=== PATIENT | female | born 1980 | race Caucasian/White ===

== ENCOUNTER 2016-12-26 09:17 | Emergency (ER) | payer BC ==
--- NOTE | 2016-12-26 11:01 | ERPHSYRPT ---
- History of Present Illness Time Seen by Provider: 12/26/16 09:30 Historian: patient Exam Limitations: no limitations Patient Subjective Stated Complaint: cough, vomiting, fever, h/a for two days. Triage Nursing Assessment: ambulated to room per self. dry intermittent cough noted. skin w/d, color normal, resp easy. h/a today and vomited times three. Physician History: Pt. states that she has not felt well x 3 days. Today, she began to have vomiting x 5 . No diarrhea. Positive aching all over. She works at [employer] and is unaware of any illness outbreaks or other known exposure. LNMP 2 weeks ago. Timing/Duration: today Activities at Onset: none Quality: cramping Abdominal Pain Onset Location: generalized abdomen Severity of Pain-Max: moderate Severity of Pain-Current: moderate Modifying Factors: Improves With: nothing Associated Symptoms: weakness, No diarrhea Allergies/Adverse Reactions: bee venom protein (honey bee) Allergy (Verified 12/26/16 09:30) Home Medications: Buspirone HCl [Buspar] 7.5 mg PO BID 12/26/16 [History] Fluoxetine HCl [Prozac] 20 mg PO DAILY 12/26/16 [History] Hydrochlorothiazide 12.5 mg PO DAILY 12/26/16 [History] Metformin HCl 500 mg [Glucophage 500 MG] 500 mg PO BID 12/26/16 [History] Hx Tetanus, Diphtheria Vaccination/Date Given: No Hx Influenza Vaccination/Date Given: No Hx Pneumococcal Vaccination/Date Given: No - Review of Systems Constitutional: No Symptoms Eyes: No Symptoms Ears, Nose, & Throat: No Symptoms Respiratory: No Symptoms Cardiac: No Symptoms Abdominal/Gastrointestinal: Abdominal Pain, Nausea, Vomiting, No Diarrhea Musculoskeletal: No Symptoms Skin: No Symptoms Neurological: No Symptoms Psychological: No Symptoms Endocrine: No Symptoms Hematologic/Lymphatic: No Symptoms - Past Medical History Pertinent Past Medical History: Yes Cardiac History: Hypertension Endocrine Medical History: Diabetes Type II Psycho-Social History: Anxiety, Depression - Past Surgical History Past Surgical History: Yes Female Surgical History: Tubal Ligation Other Surgical History: leap procedure, - Social History Smoking Status: Never smoker Exposure to second hand smoke: No Drug Use: none Patient Lives Alone: No - Female History Hx Last Menstrual Period: 12/14/16 - Nursing Vital Signs Nursing Vital Signs: Initial Vital Signs Temperature 99.3 F Temperature Source Oral Pulse Rate 107 Respiratory Rate 18 Blood Pressure [Right Arm] 122/71 Pain Intensity 1 - Physical Exam General Appearance: moderate distress Eye Exam: eyes nml inspection Ears, Nose, Throat Exam: normal ENT inspection, pharynx normal Neck Exam: normal inspection, supple, full range of motion Respiratory Exam: normal breath sounds, lungs clear Cardiovascular Exam: regular rate/rhythm, normal heart sounds, normal peripheral pulses Gastrointestinal/Abdomen Exam: soft, normal bowel sounds Extremity Exam: normal inspection, normal range of motion Neurologic Exam: alert, oriented x 3, cooperative Skin Exam: normal color, No rash SpO2 Interpretation: normal SpO2: 94 Oxygen Delivery: Room Air - Course Nursing assessment & vital signs reviewed: Yes Ordered Tests: Active Orders 24 hr Category Date Time Status CBC W DIFF Stat Lab 12/26/16 11:26 Completed CMP Stat Lab 12/26/16 11:26 Completed HCG,QUALITATIVE URINE Stat Lab 12/26/16 11:56 Completed LIPASE Stat Lab 12/26/16 11:26 Completed Manual Differential NC Stat Lab 12/26/16 11:26 Completed Medication Summary Discontinued Medications Generic Name Dose Route Start Last Admin Trade Name Kulwinderq PRN Reason Stop Dose Admin Acetaminophen 650 mg 12/26/16 12:41 12/26/16 12:42 Tylenol 325 Mg PO 12/26/16 12:42 650 mg STAT STA Administration Sodium Chloride 1,000 mls @ 999 mls/hr 12/26/16 11:08 12/26/16 11:30 Sodium Chloride 0.9% 1000 Ml IV 12/26/16 12:08 999 mls/hr .Q1H1M STA Administration Sodium Chloride Confirm 12/26/16 11:28 Sodium Chloride 0.9% 1000 Ml Administered 12/26/16 11:29 Dose 1,000 mls @ ud .ROUTE .STK-MED ONE Ondansetron HCl 4 mg 12/26/16 11:08 12/26/16 11:30 Zofran 4 Mg/2 Ml Vial IV 12/26/16 11:09 4 mg STAT ONE Administration Ondansetron HCl Confirm 12/26/16 11:28 Zofran 4 Mg/2 Ml Vial Administered 12/26/16 11:29 Dose 4 mg .ROUTE .STK-MED ONE Lab/Rad Data: Laboratory Result Diagrams 12/26/16 11:26 12/26/16 11:26 Laboratory Results 12/26/16 12/26/16 12/26/16 Range/Units 11:56 11:26 11:26 WBC (4.0-10.5) K/mm3 RBC (4.1-5.4) M/mm3 Hgb (12.0-16.0) gm/dl Hct (35-47) % MCV (78-100) fl MCH (26-32) pg MCHC (32-36) g/dl RDW (11.5-14.0) % Plt Count (150-450) K/mm3 MPV (6-9.5) fl Segmented Neutrophils (36.0-66.0) % Lymphocytes (Manual) (24-44) % Differential Comment Platelet Estimate (NORMAL) Sodium 139 (136-145) mEq/L Potassium 3.5 (3.5-5.1) mEq/L Chloride 101 (98-107) mEq/L Carbon Dioxide 25.3 (21-32) mEq/L Anion Gap 16.2 H (5-15) MEQ/L BUN 5 L (9-20) mg/dL Creatinine 0.80 (0.55-1.30) mg/dl Estimated GFR > 60 ML/MIN Glucose 107 (70-110) MG/DL Calcium 8.4 L (8.5-10.1) mg/dL Total Bilirubin 0.2 (0.2-1.0) mg/dL AST 23 (15-37) U/L ALT 23 (12-78) U/L Alkaline Phosphatase 53 (46-116) U/L Serum Total Protein 7.5 (6.4-8.2) gm/dL Albumin 3.5 (3.4-5.0) g/dL Lipase 99 (73-393) U/L Urine HCG, Qual NEGATIVE (Negative) Influenza Type A Ag POSITIVE (NEGATIVE) Influenza Type B Ag NEGATIVE (NEGATIVE) RSV (PCR) NEGATIVE (Negative) 12/26/16 Range/Units 11:26 WBC 7.3 (4.0-10.5) K/mm3 RBC 4.43 (4.1-5.4) M/mm3 Hgb 13.4 (12.0-16.0) gm/dl Hct 40.4 (35-47) % MCV 91.2 (78-100) fl MCH 30.2 (26-32) pg MCHC 33.2 (32-36) g/dl RDW 13.3 (11.5-14.0) % Plt Count 214 (150-450) K/mm3 MPV 10.3 H (6-9.5) fl Segmented Neutrophils 85 H (36.0-66.0) % Lymphocytes (Manual) 15 L (24-44) % Differential Comment NORMAL Platelet Estimate NORMAL (NORMAL) Sodium (136-145) mEq/L Potassium (3.5-5.1) mEq/L Chloride (98-107) mEq/L Carbon Dioxide (21-32) mEq/L Anion Gap (5-15) MEQ/L BUN (9-20) mg/dL Creatinine (0.55-1.30) mg/dl Estimated GFR ML/MIN Glucose (70-110) MG/DL Calcium (8.5-10.1) mg/dL Total Bilirubin (0.2-1.0) mg/dL AST (15-37) U/L ALT (12-78) U/L Alkaline Phosphatase (46-116) U/L Serum Total Protein (6.4-8.2) gm/dL Albumin (3.4-5.0) g/dL Lipase (73-393) U/L Urine HCG, Qual (Negative) Influenza Type A Ag (NEGATIVE) Influenza Type B Ag (NEGATIVE) RSV (PCR) (Negative) - Progress Progress: improved Discussed with DrChoco: Other (Dr. Bull 1 week) Will see patient in: office Counseled pt/family regarding: lab results, diagnosis, need for follow-up - Departure Time of Disposition: 12:44 Departure Disposition: Home Clinical Impression: Influenza A Condition: Stable Critical Care Time: No Prescriptions: Ondansetron [Zofran Odt] 4 mg PO Q6H PRN PRN #12 tab.rapdis PRN Reason: Vomiting Oseltamivir 75 mg [Tamiflu 75MG Capsule] 75 mg PO BID #10 cap
[2016-12-26] MEDS ORDERED: Zofran 4 MG/2 ML VIAL IV ONE (11:08)
[2016-12-26] MEDS ORDERED: Sodium Chloride 0.9% 1000 ML 1,000 ML IV STA (11:08)
[2016-12-26] MEDS ORDERED: Sodium Chloride 0.9% 1000 ML 1,000 ML ONE (11:28)
[2016-12-26] MEDS ORDERED: Zofran 4 MG/2 ML VIAL ONE (11:28)
[2016-12-26 11:30] LABS: Mean Cell Volume 91.2 fl (78-100); Mean Corpuscular Hemoglobin 30.2 pg (26-32); Mean Platelet Volume 10.3 fl (6-9.5); Platelet Count 214 K/mm3 (150-450); Red Blood Count 4.43 M/mm3 (4.1-5.4); Red Cell Distribution Width 13.3 % (11.5-14.0); White Blood Count 7.3 K/mm3 (4.0-10.5)
[2016-12-26 11:45] LABS: Total Cells Counted 100
[2016-12-26 11:46] LABS: Platelet Estimate NORMAL (NORMAL)
[2016-12-26 11:59] LABS: ALBUMIN 3.5 g/dL (3.4-5.0); ALKALINE PHOSPHATASE 53 U/L (46-116); ANION GAP 16.2 MEQ/L (5-15); BILIRUBIN,TOTAL 0.2 mg/dL (0.2-1.0); BLOOD UREA NITROGEN 5 mg/dL (9-20); CHLORIDE 101 mEq/L (98-107); Carbon Dioxide 25.3 mEq/L (21-32); Glucose 107 MG/DL (70-110); LIPASE 99 U/L (73-393); Potassium 3.5 mEq/L (3.5-5.1); SGOT/AST 23 U/L (15-37); SGPT/ALT 23 U/L (12-78); SODIUM 139 mEq/L (136-145); Total Protein 7.5 gm/dL (6.4-8.2)
[2016-12-26] MEDS ORDERED: TYLENOL 325 MG PO STA (12:41)
[2016-12-26] MEDS ORDERED: TYLENOL 325 MG ONE (12:42)
[2016-12-26 13:33] VITALS: BP 120/70; PULSE 98; O2SAT 100
== END 2016-12-26 13:32 | disposition home or self-care (01) ==
LOC: ED 09:17
DX: J11.1 Influenza due to unidentified influenza virus with other respiratory manifestations (principal); R05 Cough; R11.2 Nausea with vomiting, unspecified; R51 Headache; E11.9 Type 2 diabetes mellitus without complications; I10 Essential (primary) hypertension; Z79.84 Long term (current) use of oral hypoglycemic drugs; Z79.899 Other long term (current) drug therapy
CPT/HCPCS: 36000; 36415; 80053; 83690; 84703; 85025; 87631; 96360; 96374; 99284; J2405; A9270-GY

== ENCOUNTER 2021-04-23 05:50 | Day surgery (SDC) | payer BC ==
[2021-04-23] MEDS ORDERED: Lactated Ringers 1,000 ML IV SCH (06:30)
[2021-04-23] MEDS ORDERED: DIPRIVAN 200 MG/20 ML IV ONE (07:23)
[2021-04-23] MEDS ORDERED: Xylocaine-Mpf 2% 5 Ml Vial ONE (07:23)
[2021-04-23 08:38] VITALS: BP 127/79; PULSE 81; O2SAT 99
--- NOTE | 2021-04-23 09:00 | OP ---
SURGERY DATE/TIME: 04/23/2021 0727 PREOPERATIVE DIAGNOSIS: Right upper quadrant abdominal pain. POSTOPERATIVE DIAGNOSIS: 1) Diabetic gastroparesis. 2) Mild gastritis. PROCEDURE: Esophagogastroduodenoscopy with cold forceps biopsy. SURGEON: Dr. Gibson. ANESTHESIA: Medications were given by the anesthesia department. BRIEF HISTORY: The patient is a 40 year old white female patient who has been having problems with right upper quadrant abdominal pain. She had a gallbladder ultrasound and HIDA scan which have been negative. The patient reports no new medications and she denies taking NSAID's. She does take Metformin for diabetes. The patient was felt the need to have endoscopic evaluation. She was appraised of the risks of the procedure including the risk of perforation, phlebitis, untoward reaction to medication, bleeding and missed lesions. The patient verbalized her understanding and desired to have the procedure performed. DESCRIPTION OF PROCEDURE: The patient was given the medications by the anesthesia department. She had continuous pulse oximetry, ECG monitoring, intermittent blood pressure monitoring and tidal CO2 monitoring during the examination. She was placed in the left lateral decubitus position. A bite block was placed and the flexible Olympus gastroscope was used to intubate the oropharynx. A view of the larynx was obtained and was normal. The scope was easily passed in the esophagus which was normal throughout its length. The gastroesophageal junction appeared to be essentially normal. There was noted to be large amounts of gastric food stuffs in the stomach upon entry to the stomach. With careful inspection, we were able to get to the antrum and the pylorus and duodenum inspected and found to be normal. The scope is withdrawn towards the stomach. We attempted to do a retroflex view but unable to see the lesser curvature of the fundus or cardia region of the stomach due to the presence of the food products. We redirected the scope to the gastric antrum and biopsies were obtained to rule out the presence of Helicobacter pylori-type organisms. The scope was then removed from the patient who tolerated the procedure well and sent to outpatient recovery in good condition.
== END 2021-04-23 08:30 | disposition home or self-care (01) ==
LOC: SDC 05:50
PROVIDERS: ATTEND Family Medicine
DX: E11.43 Type 2 diabetes mellitus with diabetic autonomic (poly)neuropathy (principal); K31.84 Gastroparesis; K29.70 Gastritis, unspecified, without bleeding
CPT/HCPCS: 82947; 88305; J2704

== ENCOUNTER 2024-03-26 09:41 | Observation (INO) | payer BC ==
[2024-03-26] MEDS ORDERED: Sodium Chloride 0.9% 1000 ML 1,000 ML ONE (10:13)
[2024-03-26] MEDS: Sodium Chloride 0.9% 1000 ML 1,000 ML IV STA (10:13)
[2024-03-26] MEDS ORDERED: PIPERACILLIN/TAZOBACTAM IV ONE (10:17)
[2024-03-26] MEDS ORDERED: Sodium Chloride 100ML MINI-BAG PLUS 100 ML IV ONE (10:18)
--- NOTE | 2024-03-26 10:21 | ERPHSYRPT ---
- History of Present Illness Time Seen by Provider: 03/26/24 10:16 Historian: patient Exam Limitations: no limitations Patient Subjective Stated Complaint: Abdominal pain-Appendicitis Triage Nursing Assessment: Patient ambulated back to ED and transferred self to bed. Patient A+O X3. Patient's skin pink, warm and dry. Patient has been complaining of Right lower abdominal pain / since yesterday with N/V. Patient went to and CT scan was done and read patient has acute appendicitis and was told to come to ED for eval. Physician History: 43-year-old female presents to the emergency department as a referral from [facility] for evaluation and treatment of an appendicitis. Patient went to [facility] and she has been experiencing right lower quadrant pain for a day. Pain is got progressively worse. Pain worse with movement palpation patient reports ambulation also reproduces symptoms. Patient was nauseous and vomited yesterday. No nausea or vomiting today. No diarrhea no rash. Low-grade fever yesterday. Patient declined pain medication and nausea medication. Patient has a history of hypertension reportedly well-controlled on antihypertensives. Patient voices no other complaints or concerns at this time. Portions of this note were created with voice recognition technology. There may be grammatical, spelling, punctuation or sound alike errors Timing/Duration: day(s) Activities at Onset: none Quality: aching Abdominal Pain Onset Location: RLQ Pain Radiation: no radiation Severity of Pain-Max: moderate Severity of Pain-Current: moderate Modifying Factors: Improves With: movement, palpation Associated Symptoms: nausea, vomiting Previous symptoms: no prior history Allergies/Adverse Reactions: bee venom protein (honey bee) Allergy (Verified 03/26/24 09:46) Home Medications: Metformin HCl 500 mg [Glucophage 500 MG] 500 mg PO BID 12/26/16 [History] hydroCHLOROthiazide [Hydrochlorothiazide] 12.5 mg PO DAILY 12/26/16 [History] Amitriptyline HCl 25 mg [Amitriptyline 25 mg Tablet] 75 mg PO HS 04/20/21 [History] Bupropion HCl Xl 150 mg [Wellbutrin XL 150 MG] 150 mg PO DAILY 04/20/21 [History] Hx Tetanus, Diphtheria Vaccination/Date Given: No Hx Influenza Vaccination/Date Given: No Hx Pneumococcal Vaccination/Date Given: No Immunizations Up to Date: Yes Travel Risk - International Travel Have you traveled outside of the country in past 3 weeks: No - Emerging Infectious Disease Are you exhibiting symptoms associated with any current EIDs: No - Review of Systems Constitutional: No Symptoms, No Fever, No Chills Eyes: No Symptoms Ears, Nose, & Throat: No Symptoms Respiratory: No Symptoms, No Cough, No Dyspnea Cardiac: No Symptoms, No Chest Pain, No Edema, No Syncope Abdominal/Gastrointestinal: No Symptoms, No Abdominal Pain, No Nausea, No Vomiting, No Diarrhea Genitourinary Symptoms: No Symptoms, No Dysuria Musculoskeletal: No Symptoms, No Back Pain, No Neck Pain Skin: No Symptoms, No Rash Neurological: No Symptoms, No Dizziness, No Focal Weakness, No Sensory Changes Psychological: No Symptoms Endocrine: No Symptoms Hematologic/Lymphatic: No Symptoms Immunological/Allergic: No Symptoms All Other Systems: Reviewed and Negative - Past Medical History Pertinent Past Medical History: Yes Neurological History: Other ENT History: No Pertinent History Cardiac History: Hypertension Respiratory History: No Pertinent History Endocrine Medical History: Diabetes Type II Musculoskeletal History: No Pertinent History GI Medical History: No Pertinent History History: No Pertinent History Psycho-Social History: Anxiety, Depression Female Reproductive Disorders: No Pertinent History - Past Surgical History Past Surgical History: Yes Neuro Surgical History: No Pertinent History Cardiac: No Pertinent History Respiratory: No Pertinent History Gastrointestinal: No Pertinent History Genitourinary: No Pertinent History Female Surgical History: Tubal Ligation Other Surgical History: leap procedure, lt hip lipoma - Female History Hx Last Menstrual Period: 2 weeks Hx Now: No - Social History Smoking Status: Never smoker Exposure to second hand smoke: No Drug Use: none Patient Lives Alone: No - Social Determinants of Health Will the patient participate in the screening: Yes Do you worry about a steady place to live?: No Do you have any problems with any of the following?: No known problems In the past 12 months,have you had to go without utilities?: No Transportation Issues: No Has anyone in your support network made you feel unsafe?: No Have you or anyone in your house had to go without enough: No - Nursing Vital Signs Nursing Vital Signs: Initial Vital Signs Temperature 97.8 F 03/26/24 09:49 Pulse Rate 115 H 03/26/24 09:49 Respiratory Rate 20 03/26/24 09:49 Blood Pressure 115/88 03/26/24 09:49 O2 Sat by Pulse Oximetry 99 03/26/24 09:49 Pain Scale Pain Intensity 8 - Physical Exam General Appearance: no apparent distress, alert Eye Exam: PERRL/EOMI, eyes nml inspection Ears, Nose, Throat Exam: normal ENT inspection, pharynx normal, moist mucous membranes Neck Exam: normal inspection, non-tender, supple, full range of motion Respiratory Exam: normal breath sounds, lungs clear, airway intact, No respiratory distress Cardiovascular Exam: regular rate/rhythm, normal heart sounds Gastrointestinal/Abdomen Exam: soft, tenderness (Tenderness right lower quadrant McBurney's point. Some signs of peritonitis.), No mass Back Exam: normal inspection, normal range of motion, No CVA tenderness, No vertebral tenderness Extremity Exam: normal inspection, normal range of motion, pelvis stable Neurologic Exam: alert, oriented x 3, cooperative, normal mood/affect, nml cerebellar function, sensation nml, No motor deficits Skin Exam: normal color, warm, dry SpO2 Interpretation: normal SpO2: 99 O2 Delivery: Room Air - Course Nursing assessment & vital signs reviewed: Yes Ordered Tests: Active Orders 24 hr Category Date Time Status IV Insertion STAT Care 03/26/24 10:10 Active CBC W DIFF Stat Lab 03/26/24 09:50 Completed CMP Stat Lab 03/26/24 09:50 Completed HCG QUALITATIVE, SERUM Stat Lab 03/26/24 09:50 Completed LIPASE Stat Lab 03/26/24 09:50 Completed UA W/RFX UR CULTURE Stat Lab 03/26/24 10:10 Ordered Medication Summary Discontinued Medications Generic Name Dose Route Start Last Admin Trade Name Kulwinderq PRN Reason Stop Dose Admin Sodium Chloride 1,000 mls @ 999 mls/hr 03/26/24 10:10 03/26/24 10:13 Sodium Chloride 0.9% 1000 Ml IV 03/26/24 11:10 999 mls/hr .Q1H1M STA Administration Piperacillin Sod/Tazobactam 100 mls @ 200 mls/hr 03/26/24 10:15 03/26/24 10:26 Sod 3.375 gm/ Sodium Chloride IV 03/26/24 10:44 200 mls/hr STAT ONE Administration Sodium Chloride Confirm 03/26/24 10:13 Sodium Chloride 0.9% 1000 Ml Administered 03/26/24 10:14 Dose 1,000 mls @ ud .ROUTE .STK-MED ONE Sodium Chloride Confirm 03/26/24 10:18 Sodium Chloride 100ml Mini-Bag Plus Administered 03/26/24 10:19 Dose 100 mls @ ud IV .STK-MED ONE Piperacillin Sod/Tazobactam Sod Confirm 03/26/24 10:17 Piperacillin/Tazobactam Sodium 3.375 Gm Vial Administered 03/26/24 10:18 Dose 3.375 gm IV .STK-MED ONE Lab/Rad Data: Laboratory Result Diagrams 03/26/24 09:50 03/26/24 09:50 Laboratory Results 03/26/24 03/26/24 03/26/24 Range/Units 09:50 09:50 09:50 WBC 13.6 H (3.98-10.04) x10^3/uL RBC 4.36 (3.93-5.22) x10^6/uL Hgb 13.2 (11.2-15.7) g/dL Hct 40.1 (34.1-44.9) % MCV 92.0 (79.4-94.8) fL MCH 30.3 (25.6-32.2) pg MCHC 32.9 (32.2-35.5) g/dL RDW 13.2 (11.7-14.4) % Plt Count 323 (182-369) x10^3/uL MPV 10.7 (9.4-12.3) fL Gran % 82.6 H (34.0-71.1) % Immature Gran % (Auto) 0.5 H (0.001-0.429) % Nucleat RBC Rel Count 0.0 (0.00-0.2) % Eos # (Auto) 0.04 (0.04-0.36) x10^3/uL Immature Gran # (Auto) 0.07 H (0.001-0.031) x10^3u/L Absolute Lymphs (auto) 1.19 (1.18-3.74) x10^3/uL Absolute Monos (auto) 1.03 H (0.24-0.86) x10^3/uL Absolute Nucleated RBC 0.00 (0.00-0.012) x10^3u/L Lymphocytes % 8.8 L (19.3-51.7) % Monocytes % 7.6 (4.7-12.5) % Eosinophils % 0.3 L (0.7-5.8) % Basophils % 0.2 (0.1-1.2) % Absolute Granulocytes 11.21 H (1.56-6.13) x10^3/uL Basophils # 0.03 (0.01-0.08) x10^3/uL Sodium 135 (135-145) mmol/L Potassium 3.6 (3.5-5.1) mmol/L Chloride 101 (98-107) mmol/L Carbon Dioxide 25 (22-30) mmol/L Anion Gap 12.6 (5-15) MEQ/L BUN 8 (7-17) mg/dL Creatinine 0.70 (0.52-1.04) mg/dL Estimated GFR 111.4 ML/MIN Glucose 89 (74-106) mg/dL Calcium 9.3 (8.4-10.2) mg/dL Total Bilirubin 0.70 (0.2-1.3) mg/dL AST 26 (14-36) U/L ALT 14 (0-35) U/L Alkaline Phosphatase 72 (38-126) U/L Serum Total Protein 7.5 (6.3-8.2) g/dL Albumin 4.2 (3.5-5.0) g/dL Lipase 90 (23-300) U/L Serum HCG, Qual NEGATIVE (NEGATIVE) - Progress Progress: improved Progress Note: Case discussed with Dr. Degroot at 10:48 AM. He advised admitting patient to hospitalist. We will keep patient NPO. Antibiotics infused. Patient received Zosyn. Dr. Degroot anticipates taking patient to the OR sometime this afternoon. Plan of care discussed with patient. She agrees to admission [facility] for further evaluation. She voices no other complaints or concerns at this time. Patient a 43-year-old female history of hypertension presents to our ED as a referral from [facility] for further evaluation and treatment of a diagnosed appendicitis. Patient had a CT abdomen pelvis without contrast which showed a 1.6 cm appendix with periappendiceal stranding. Physical exam revealed tenderness at McBurney's point. Physical exam consistent with acute appendicitis. There are some findings consistent with early peritonitis. Rovsing positive Complexity problem addressed is moderate acute complicated. No critical care time. Complex of data reviewed and analyzed is extensive. Test ordered chest reviewed results analyzed and correlated clinically with history and physical examination. Management discussed with general surgeon as well as hospitalist. Risk of complication and or risk of morbidity/mortality patient management is high. Patient requires hospitalization for further evaluation and treatment. Vital stable. Time spent admit patient approximately 20 minutes. Plan of care established for shared decision making. No social determinants of health presen t impede follow-up. Portions of this note were created with voice recognition technology. There may be grammatical, spelling, punctuation or sound alike errors 03/26/24 10:[address] Rueda at 11:17 AM. Patient accepted for admission [facility]. 03/26/24 11:16 Discussed with DrChoco: Bryan (10:48 AM) Counseled pt/family regarding: lab results, diagnosis, rad results - Departure Departure Disposition: Observation Clinical Impression: Abdominal pain, Acute appendicitis Condition: Stable Critical Care Time: No Referrals: ZEN ORTEGA, LEGAL SERVICES MANAGER [Primary Care Provider] - Follow up/PCP as directed Additional Instructions: Discharge/Care Plan CASE,ARMAND TAM was seen on 03/26/24 in the Emergency Room. The patient was counseled regarding Diagnosis,Lab results, Imaging studies, need for follow up and when to return to the Emergency Room. Prescriptions given: Discharge Note I have spoken with the patient and/or caregivers. I have explained the patient's condition, diagnosis and treatment plan based on the information available to me at this time. I have answered the patient's and/or caregiver's questions and addressed any concerns. The patient and/or caregivers have as good understanding of the patient's diagnosis, condition and treatment plan as can be expected at this point. The vital signs have been stable. The patient's condition is stable and appropriate for discharge from the emergency department. The patient will pursue further outpatient evaluation with the primary care physician or other designated or consulting physician as outlined in the discharge instructions. The patient and/or caregivers are agreeable to this plan of care and follow-up instructions have been explained in detail. The patient and/or caregivers have received these instruction. The patient/and or caregivers are aware that any significant change in condition or worsening of symptoms should prompt an immediate return to this or the closest emergency department or call 911.
[2024-03-26] MEDS: PIPERACILLIN/TAZOBACTAM 3.375 GM in Sodium Chloride 100ML MINI-BAG PLUS 100 ML IV ONE (10:26)
[2024-03-26 10:30] LABS: Absolute Neutrophil Ct (ANC) 11.21 x10^3/uL (1.56-6.13); BASOPHIL % 0.2 % (0.1-1.2); Basophil (Absolute #) 0.03 x10^3/uL (0.01-0.08); Eosinophil % 0.3 % (0.7-5.8); Eosinophil (Absolute #) 0.04 x10^3/uL (0.04-0.36); Hematocrit 40.1 % (34.1-44.9); Hemoglobin 13.2 g/dL (11.2-15.7); IMMATURE GRAN # 0.07 x10^3u/L (0.001-0.031); IMMATURE GRAN % 0.5 % (0.001-0.429); Lymphocyte (Absolute #) 1.19 x10^3/uL (1.18-3.74); Lymphocytes % 8.8 % (19.3-51.7); Mean Corpuscular Hemoglobin 30.3 pg (25.6-32.2); Mean Corpuscular Hgb Concent. 32.9 g/dL (32.2-35.5); Mean Platelet Volume 10.7 fL (9.4-12.3); Monocyte (Absolute #) 1.03 x10^3/uL (0.24-0.86); Monocytes % 7.6 % (4.7-12.5); Neutrophil % 82.6 % (34.0-71.1); Platelet Count 323 x10^3/uL (182-369); Red Blood Count 4.36 x10^6/uL (3.93-5.22); Red Cell Distribution Width 13.2 % (11.7-14.4); White Blood Count 13.6 x10^3/uL (3.98-10.04)
[2024-03-26 10:36] LABS: HCG SERUM TEST NEGATIVE (NEGATIVE)
[2024-03-26 11:07] LABS: ALBUMIN 4.2 g/dL (3.5-5.0); ANION GAP 12.6 MEQ/L (5-15); BILIRUBIN,TOTAL 0.7 mg/dL (0.2-1.3); Calcium 9.3 mg/dL (8.4-10.2); Creatinine 1 0.7 mg/dL (0.52-1.04); EST GLOMERULAR FILTRATION RATE 111.4 ML/MIN; Potassium 3.6 mmol/L (3.5-5.1); Total Protein 7.5 g/dL (6.3-8.2)
--- NOTE | 2024-03-26 12:28 | PCM.HP ---
<KEL CROFT - Last Filed: 03/26/24 12:18> History of Present Illness - Chief Complaint Chief Complaint: Acute appendicitis Date: 03/26/24 History of Present Illness: CASE is a 43 year old female with a pmhx of HTN, diabetes, anxiety, and depression who presented to ED 03/26/24 under the advisement of [facility] care for evaluation and treatment of acute appendicitis noted on CT imaging done as OP. Patient reports a one day history of moderate, progressive, constant RLQ stabbing pain with associated nausea, vomiting, and fever of 100.6. Pain aggravated with movement, no relieving factors. She denies nausea and vomiting today. Denies cough, sob, cp, HINKLE, dizziness, or diarrhea. In ED, vitals stable. CT reviewed demonstrating acute appendicitis. Lab findings remarkable for leukocytosis with WBC at 13.6, otherwise unremarkable. Patient given zosyn and fluid bolus in ED. Plan for surgical intervention today. - Review of Systems Constitutional: Fever, Weakness Eyes: No Symptoms Ears, Nose, & Throat: No Symptoms Respiratory: No Symptoms Cardiac: No Symptoms Abdominal/Gastrointestinal: Abdominal Pain, Nausea, Vomiting, Appetite Changes Genitourinary Symptoms: No Symptoms Musculoskeletal: No Symptoms Skin: No Symptoms Neurological: No Symptoms Psychological: No Symptoms Endocrine: No Symptoms Hematologic/Lymphatic: No Symptoms Immunological/Allergic: No Symptoms Medications & Allergies Home Medications: Home Medication List Metformin HCl 500 mg [Glucophage 500 MG] 500 mg PO BID 12/26/16 [History Confirmed 03/26/24] hydroCHLOROthiazide [Hydrochlorothiazide] 12.5 mg PO DAILY 12/26/16 [History Confirmed 03/26/24] Amitriptyline HCl 25 mg [Amitriptyline 25 mg Tablet] 75 mg PO HS 04/20/21 [History Confirmed 03/26/24] Bupropion HCl Xl 150 mg [Wellbutrin XL 150 MG] 150 mg PO DAILY 04/20/21 [History Confirmed 03/26/24] Amox Tr/Potass Clav. 875 mg [Augmentin 875-125 Tablet] 875 mg PO BID #10 tablet 03/26/24 [Rx] Hydrocodone/Acetaminophen [Hydrocodone-Acetamin 5-325 mg] 1 tab PO Q4HPRN PRN #16 tablet MDD 6 03/26/24 [Rx] Semaglutide [Ozempic] 2 mg SQ WEEKLY 03/26/24 [History Confirmed 03/26/24] Allergies/Adverse Reactions: Allergies Allergy/AdvReac Type Severity Reaction Status Date / Time bee venom protein (honey bee) Allergy Verified 03/26/24 12:06 - Past Medical History Past Medical History: Yes Neurological History: Other ENT History: No Pertinent History Cardiac History: Hypertension Respiratory History: No Pertinent History Endocrine Medical History: Diabetes Type II Musculoskelatal History: No Pertinent History GI Medical History: No Pertinent History History: No Pertinent History Pyscho-Social History: Anxiety, Depression Reproductive Disorders: No Pertinent History - Female History Hx Last Menstrual Period: 2 weeks Are you now?: No - Past Surgical History Past Surgical History: Yes Neuro Surgical History: No Pertinent History Cardiac History: No Pertinent History Respiratory Surgery: No Pertinent History GI Surgical History: No Pertinent History Genitourinary Surgical Hx: No Pertinent History Female Surgical History: Tubal Ligation Other Surgical History: leap procedure, lt hip lipoma - Social History Smoking Status: Never smoker Exposure to second hand smoke: No Alcohol: None Drug Use: none - Social Determinants of Health Will the patient participate in the screening: Yes Do you worry about a steady place to live?: No Do you have any problems with any of the following?: No known problems In the past 12 months,have you had to go without utilities?: No Have you or anyone in your house had to go without enough: No Transportation Issues: No Has anyone in your support network made you feel unsafe?: No - Physical Exam Vital Signs: Vital Signs - 24 hr Temp Pulse Resp BP Pulse Ox 03/26/24 12:00 96.6 F 84 18 127/71 95 03/26/24 11:21 99 03/26/24 09:49 97.8 F 115 H 20 115/88 99 General Appearance: no apparent distress Neurologic Exam: alert, oriented x 3, cooperative Eye Exam: PERRL/EOMI Ears, Nose, Throat Exam: normal ENT inspection Neck Exam: normal inspection Respiratory Exam: normal breath sounds, lungs clear Cardiovascular Exam: regular rate/rhythm, normal heart sounds Gastrointestinal/Abdomen Exam: soft, normal bowel sounds, tenderness (RLQ McBurney's point) Pelvic Exam: not done Rectal Exam: deferred Back Exam: normal inspection Extremity Exam: normal inspection Skin Exam: normal color Results - Labs Lab/Micro Results: Lab Results-Last 24 Hours 03/26/24 03/26/24 03/26/24 Range/Units 09:50 09:50 09:50 WBC 13.6 H (3.98-10.04) x10^3/uL RBC 4.36 (3.93-5.22) x10^6/uL Hgb 13.2 (11.2-15.7) g/dL Hct 40.1 (34.1-44.9) % MCV 92.0 (79.4-94.8) fL MCH 30.3 (25.6-32.2) pg MCHC 32.9 (32.2-35.5) g/dL RDW 13.2 (11.7-14.4) % Plt Count 323 (182-369) x10^3/uL MPV 10.7 (9.4-12.3) fL Gran % 82.6 H (34.0-71.1) % Immature Gran % (Auto) 0.5 H (0.001-0.429) % Nucleat RBC Rel Count 0.0 (0.00-0.2) % Eos # (Auto) 0.04 (0.04-0.36) x10^3/uL Immature Gran # (Auto) 0.07 H (0.001-0.031) x10^3u/L Absolute Lymphs (auto) 1.19 (1.18-3.74) x10^3/uL Absolute Monos (auto) 1.03 H (0.24-0.86) x10^3/uL Absolute Nucleated RBC 0.00 (0.00-0.012) x10^3u/L Lymphocytes % 8.8 L (19.3-51.7) % Monocytes % 7.6 (4.7-12.5) % Eosinophils % 0.3 L (0.7-5.8) % Basophils % 0.2 (0.1-1.2) % Absolute Granulocytes 11.21 H (1.56-6.13) x10^3/uL Basophils # 0.03 (0.01-0.08) x10^3/uL Sodium 135 (135-145) mmol/L Potassium 3.6 (3.5-5.1) mmol/L Chloride 101 (98-107) mmol/L Carbon Dioxide 25 (22-30) mmol/L Anion Gap 12.6 (5-15) MEQ/L BUN 8 (7-17) mg/dL Creatinine 0.70 (0.52-1.04) mg/dL Estimated GFR 111.4 ML/MIN Glucose 89 (74-106) mg/dL Calcium 9.3 (8.4-10.2) mg/dL Total Bilirubin 0.70 (0.2-1.3) mg/dL AST 26 (14-36) U/L ALT 14 (0-35) U/L Alkaline Phosphatase 72 (38-126) U/L Serum Total Protein 7.5 (6.3-8.2) g/dL Albumin 4.2 (3.5-5.0) g/dL Lipase 90 (23-300) U/L Serum HCG, Qual NEGATIVE (NEGATIVE) Assessment/Plan (1) Acute appendicitis Current Visit: Yes Status: Acute Assessment & Plan: -CT reviewed, consistent findings of acute appendicitis -Zosyn started in ED, will continue -Surgery consulted, plan for intervention today -NPO -bilateral SCD's -pain control -anti- emetics Code(s): K35.80 - UNSPECIFIED ACUTE APPENDICITIS (2) Leukocytosis Current Visit: Yes Status: Acute Assessment & Plan: -secondary to acute appendicitis, see plan above Code(s): D72.829 - ELEVATED WHITE BLOOD CELL COUNT, UNSPECIFIED (3) HTN (hypertension) Current Visit: Yes Status: Acute Assessment & Plan: -continue home meds when NPO status lifted Code(s): I10 - ESSENTIAL (PRIMARY) HYPERTENSION (4) Type 2 diabetes mellitus Current Visit: Yes Status: Acute Assessment & Plan: -ADA diet following surgery when NPO status lifted -Continue home metformin when tolerating diet -A1c (5) Anxiety and depression Current Visit: Yes Status: Acute Assessment & Plan: -continue home meds when tolerating a diet VTE: bilateral scd Dispo: 1-2 days Code status: Full code Code(s): F41.9 - ANXIETY DISORDER, UNSPECIFIED; F32.A - DEPRESSION, UNSPECIFIED <MILAN ROCKWELL - Last Filed: 03/26/24 21:45> History of Present Illness - Chief Complaint History of Present Illness: CASE is a 43 year old female. - Physical Exam Vital Signs: Vital Signs - 24 hr Temp Pulse Resp BP Pulse Ox 03/26/24 20:40 98.1 F 90 17 113/67 97 03/26/24 20:15 97.9 F 88 17 114/65 97 03/26/24 19:45 97.5 F 85 15 111/60 98 03/26/24 19:30 97.9 F 16 109/57 98 03/26/24 19:15 97.9 F 88 16 108/56 97 03/26/24 19:00 97.6 F 88 16 112/58 98 03/26/24 12:06 96.6 F 84 18 127/71 95 03/26/24 12:00 96.6 F 84 18 127/71 95 03/26/24 11:58 96.6 F 84 18 127/71 95 03/26/24 11:21 99 03/26/24 09:49 97.8 F 115 H 20 115/88 99 Results - Labs Lab/Micro Results: Lab Results-Last 24 Hours 03/26/24 03/26/24 03/26/24 Range/Units 09:50 09:50 09:50 WBC 13.6 H (3.98-10.04) x10^3/uL RBC 4.36 (3.93-5.22) x10^6/uL Hgb 13.2 (11.2-15.7) g/dL Hct 40.1 (34.1-44.9) % MCV 92.0 (79.4-94.8) fL MCH 30.3 (25.6-32.2) pg MCHC 32.9 (32.2-35.5) g/dL RDW 13.2 (11.7-14.4) % Plt Count 323 (182-369) x10^3/uL MPV 10.7 (9.4-12.3) fL Gran % 82.6 H (34.0-71.1) % Immature Gran % (Auto) 0.5 H (0.001-0.429) % Nucleat RBC Rel Count 0.0 (0.00-0.2) % Eos # (Auto) 0.04 (0.04-0.36) x10^3/uL Immature Gran # (Auto) 0.07 H (0.001-0.031) x10^3u/L Absolute Lymphs (auto) 1.19 (1.18-3.74) x10^3/uL Absolute Monos (auto) 1.03 H (0.24-0.86) x10^3/uL Absolute Nucleated RBC 0.00 (0.00-0.012) x10^3u/L Lymphocytes % 8.8 L (19.3-51.7) % Monocytes % 7.6 (4.7-12.5) % Eosinophils % 0.3 L (0.7-5.8) % Basophils % 0.2 (0.1-1.2) % Absolute Granulocytes 11.21 H (1.56-6.13) x10^3/uL Basophils # 0.03 (0.01-0.08) x10^3/uL Sodium 135 (135-145) mmol/L Potassium 3.6 (3.5-5.1) mmol/L Chloride 101 (98-107) mmol/L Carbon Dioxide 25 (22-30) mmol/L Anion Gap 12.6 (5-15) MEQ/L BUN 8 (7-17) mg/dL Creatinine 0.70 (0.52-1.04) mg/dL Estimated GFR 111.4 ML/MIN Glucose 89 (74-106) mg/dL POC Glucometer (74 to 106) mg/dL Hemoglobin A1c (4.5-6.0) % Calcium 9.3 (8.4-10.2) mg/dL Total Bilirubin 0.70 (0.2-1.3) mg/dL AST 26 (14-36) U/L ALT 14 (0-35) U/L Alkaline Phosphatase 72 (38-126) U/L Serum Total Protein 7.5 (6.3-8.2) g/dL Albumin 4.2 (3.5-5.0) g/dL Lipase 90 (23-300) U/L Serum HCG, Qual NEGATIVE (NEGATIVE) Urine Color (Yellow) Urine Appearance (Clear) Urine pH (4.6-8.0) Ur Specific [place] (1.005-1.030) Urine Protein (Negative) Urine Glucose (UA) (Negative) mg/dL Urine Ketones (Negative) Urine Blood (Negative) Urine Nitrite (Negative) Urine Bilirubin (Negative) Urine Urobilinogen (0.2) mg/dL Ur Leukocyte Esterase (Negative) U Hyaline Cast (Auto) (0-2) /LPF Urine Microscopic RBC (0-5) /HPF Urine Microscopic WBC (0-5) /HPF Ur Epithelial Cells (None Seen) /HPF Urine Bacteria (None Seen) /HPF Urine Culture Reflexed (NO) 03/26/24 03/26/24 03/26/24 Range/Units 09:50 14:00 20:57 WBC (3.98-10.04) x10^3/uL RBC (3.93-5.22) x10^6/uL Hgb (11.2-15.7) g/dL Hct (34.1-44.9) % MCV (79.4-94.8) fL MCH (25.6-32.2) pg MCHC (32.2-35.5) g/dL RDW (11.7-14.4) % Plt Count (182-369) x10^3/uL MPV (9.4-12.3) fL Gran % (34.0-71.1) % Immature Gran % (Auto) (0.001-0.429) % Nucleat RBC Rel Count (0.00-0.2) % Eos # (Auto) (0.04-0.36) x10^3/uL Immature Gran # (Auto) (0.001-0.031) x10^3u/L Absolute Lymphs (auto) (1.18-3.74) x10^3/uL Absolute Monos (auto) (0.24-0.86) x10^3/uL Absolute Nucleated RBC (0.00-0.012) x10^3u/L Lymphocytes % (19.3-51.7) % Monocytes % (4.7-12.5) % Eosinophils % (0.7-5.8) % Basophils % (0.1-1.2) % Absolute Granulocytes (1.56-6.13) x10^3/uL Basophils # (0.01-0.08) x10^3/uL Sodium (135-145) mmol/L Potassium (3.5-5.1) mmol/L Chloride (98-107) mmol/L Carbon Dioxide (22-30) mmol/L Anion Gap (5-15) MEQ/L BUN (7-17) mg/dL Creatinine (0.52-1.04) mg/dL Estimated GFR ML/MIN Glucose (74-106) mg/dL POC Glucometer 53 L (74 to 106) mg/dL Hemoglobin A1c 4.84 (4.5-6.0) % Calcium (8.4-10.2) mg/dL Total Bilirubin (0.2-1.3) mg/dL AST (14-36) U/L ALT (0-35) U/L Alkaline Phosphatase (38-126) U/L Serum Total Protein (6.3-8.2) g/dL Albumin (3.5-5.0) g/dL Lipase (23-300) U/L Serum HCG, Qual (NEGATIVE) Urine Color Yellow (Yellow) Urine Appearance Clear (Clear) Urine pH 6.0 (4.6-8.0) Ur Specific [place] 1.015 (1.005-1.030) Urine Protein Negative (Negative) Urine Glucose (UA) Negative (Negative) mg/dL Urine Ketones 15 A (Negative) Urine Blood Negative (Negative) Urine Nitrite Negative (Negative) Urine Bilirubin Negative (Negative) Urine Urobilinogen 0.2 (0.2) mg/dL Ur Leukocyte Esterase Negative (Negative) U Hyaline Cast (Auto) NONE SEEN (0-2) /LPF Urine Microscopic RBC 0-2 (0-5) /HPF Urine Microscopic WBC 0-2 (0-5) /HPF Ur Epithelial Cells None Seen (None Seen) /HPF Urine Bacteria None Seen (None Seen) /HPF Urine Culture Reflexed NO (NO) SHONNA Encounter - SHONNA Encounter Attestation SHONNA Encounter Attestation: "IhavepersonallyseenandexARMAND Liriano andsalimavediscussed pertinent aspects of their care with Kel Croft and agree with the history, physical exam (any modifications based on my personal exam will be noted below), assessment, and plan as outlined in original note. Please see immediately below for my summary of findings and additional assessment and plan along with any meaningful corrections/explanations to the Subjective/Objective portions of the SHONNA note will be noted." My portion of the encounter took place via telemedicine. -Acute appendicitis. Plan for surgery today. Start zosyn while awaiting surgery.
[2024-03-26] MEDS ORDERED: Sensorcaine 0.25% 10 ML ONE ×2 (12:48→15:29)
[2024-03-26] MEDS ORDERED: TYLENOL 325 MG PO PRN (12:52)
[2024-03-26] MEDS ORDERED: Hydromorphone 1 mg/ml Injection IV PRN (12:52)
[2024-03-26] MEDS: Sodium Chloride 0.9% 1000 ML 1,000 ML IV SCH (13:07)
[2024-03-26] MEDS: TORAdol 30 mg Injection IV PRN (13:40)
[2024-03-26 14:37] LABS: Appearance Clear (Clear); Bacteria None Seen /HPF (None Seen); Bilirubin Negative (Negative); Blood Negative (Negative); Epithelial Cells None Seen /HPF (None Seen); Glucose, Urine Negative (Negative); Hyaline Casts NONE SEEN /LPF (0-2); Ketones 15 (Negative); Leukocyte Esterase Negative (Negative); Nitrite Negative (Negative); Protein,Urine Dip Negative (Negative); RBC 0-2 /HPF (0-5); Specific Gravity 1.015 (1.005-1.030); Urobilinogen 0.2 mg/dL (0.2); WBC 0-2 /HPF (0-5)
[2024-03-26 14:40] LABS: ADD URINE CULTURE? NO (NO)
[2024-03-26] MEDS: Pepcid 20 MG VIAL IV SCH (15:18)
[2024-03-26] MEDS: Transderm Scop 1.5MG Patch TOP PRN (15:18)
[2024-03-26] MEDS: MEFOXIN 2 GM PREMIX** 2 GM/50 ML ML IV SCH (15:20)
[2024-03-26] MEDS ORDERED: Lactated Ringers 1,000 ML IV ONE (15:29)
[2024-03-26] MEDS ORDERED: ROCURONIUM BROMIDE IV ONE (16:07)
[2024-03-26] MEDS ORDERED: SUBLIMAZE 100 MCG/2 ML ONE ×2 (16:07→17:20)
[2024-03-26] MEDS ORDERED: Quelicin Fliptop 200 MG/10 ML ONE (16:07)
[2024-03-26] MEDS ORDERED: DIPRIVAN 200 MG/20 ML IV ONE (16:07)
[2024-03-26] MEDS ORDERED: Versed 2 MG/2 ML Injection ONE (16:08)
[2024-03-26] MEDS ORDERED: Xylocaine-Mpf 2% 5 Ml Vial ONE (17:14)
[2024-03-26] MEDS ORDERED: BRIDION 200MG/2ML IV ONE (17:51)
[2024-03-26] MEDS: PIPERACILLIN/TAZOBACTAM 3.375 GM in Sodium Chloride 100ML MINI-BAG PLUS 100 ML IV SCH (19:20)
[2024-03-26] MEDS ORDERED: MORPHINE SULFATE 4 MG INJ IV PRN (19:22)
[2024-03-26] MEDS: Zofran 4 MG/2 ML VIAL IV PRN (21:15)
[2024-03-27 00:18] VITALS: RESP 16
[2024-03-27 04:44] LABS: Absolute Neutrophil Ct (ANC) 8.72 x10^3/uL (1.56-6.13); BASOPHIL % 0.4 % (0.1-1.2); Basophil (Absolute #) 0.04 x10^3/uL (0.01-0.08); Eosinophil (Absolute #) 0.11 x10^3/uL (0.04-0.36); Hematocrit 30.3 % (34.1-44.9); Hemoglobin 10.3 g/dL (11.2-15.7); IMMATURE GRAN # 0.05 x10^3u/L (0.001-0.031); IMMATURE GRAN % 0.4 % (0.001-0.429); Lymphocyte (Absolute #) 1.33 x10^3/uL (1.18-3.74); Lymphocytes % 11.9 % (19.3-51.7); Mean Cell Volume 92.4 fL (79.4-94.8); Mean Corpuscular Hemoglobin 31.4 pg (25.6-32.2); Mean Platelet Volume 10.7 fL (9.4-12.3); Monocyte (Absolute #) 0.89 x10^3/uL (0.24-0.86); Neutrophil % 78.3 % (34.0-71.1); Platelet Count 232 x10^3/uL (182-369); Red Blood Count 3.28 x10^6/uL (3.93-5.22); Red Cell Distribution Width 13.5 % (11.7-14.4); White Blood Count 11.1 x10^3/uL (3.98-10.04)
[2024-03-27 05:15] LABS: ALBUMIN 2.9 g/dL (3.5-5.0); ANION GAP 9.2 MEQ/L (5-15); BILIRUBIN,TOTAL 0.5 mg/dL (0.2-1.3); Calcium 7.9 mg/dL (8.4-10.2); Creatinine 1 0.69 mg/dL (0.52-1.04); EST GLOMERULAR FILTRATION RATE 111.8 ML/MIN; Potassium 3.4 mmol/L (3.5-5.1); Total Protein 5.5 g/dL (6.3-8.2)
--- NOTE | 2024-03-27 05:45 | PCM.DS ---
Discharge Summary Date of Admission: 03/26/24 11:54 Date of Discharge: 03/27/24 Admitting Physician: MILAN ROCKWELL MD Primary Care Provider: ZEN BOSS JORDAN Allergies Allergies bee venom protein (honey bee) Allergy (Verified 03/26/24 12:06) hives, swelling Hospital Summary - Hospital Course Hospital Course: is a 43 year old female with a pmhx of HTN, diabetes, anxiety, and depression who presented to ED 03/26/24 under the advisement of [facility] for evaluation and treatment of acute appendicitis noted on CT imaging done as OP. P anand reports a one day history of moderate, progressive, constant RLQ stabbing pain with associated nausea, vomiting, and fever of 100.6. Pain aggravated with movement, no relieving factors. She denies nausea and vomiting today. Denies cough, sob, cp, HINKLE, dizziness, or diarrhea. In ED, vitals stable. CT reviewed demonstrating acute appendicitis. Lab findings remarkable for leukocytosis with WBC at 13.6, otherwise unremarkable. Patient given zosyn and fluid bolus in ED. Surgery consulted. Lap appy performed with no complications. Vitals/labs stable. Patient able to ambulate/pain controlled/ diet tolerated. Cleared by surgery for discharge home with augmentin/Brice. Patient to follow up with surgery next week. Discharge Note New Diagnosis: acute appendicitis New Medications: augmentin/norco Follow Up: pcp/surg Latest Assessment & Plan (1) Acute appendicitis Current Visit: Yes Status: Acute Assessment & Plan: -CT reviewed, consistent findings of acute appendicitis -Zosyn started in ED, will continue -Surgery consulted, plan for intervention today -NPO -bilateral SCD's -pain control -anti- emetics Code(s): K35.80 - UNSPECIFIED ACUTE APPENDICITIS (2) Leukocytosis Current Visit: Yes Status: Acute Assessment & Plan: -secondary to acute appendicitis, see plan above Code(s): D72.829 - ELEVATED WHITE BLOOD CELL COUNT, UNSPECIFIED (3) HTN (hypertension) Current Visit: Yes Status: Acute Assessment & Plan: -continue home meds when NPO status lifted Code(s): I10 - ESSENTIAL (PRIMARY) HYPERTENSION (4) Type 2 diabetes mellitus Current Visit: Yes Status: Acute Assessment & Plan: -ADA diet following surgery when NPO status lifted -Continue home metformin when tolerating diet -A1c (5) Anxiety and depression Current Visit: Yes Status: Acute Assessment & Plan: -continue home meds when tolerating a diet I spent 35 minutes [id number] with the patient on the day of discharge performing discharge exam, discussing hospital stay and discharge instructions with patient and caregivers, preparation of discharge records, prescriptions & referral forms and addressing any questions/concerns the patient had as documented above. - Vitals & Intake/Output Vital Signs: Vital Signs Temperature 97.5 F 03/27/24 04:00 Pulse Rate 86 03/27/24 04:00 Respiratory Rate 16 03/27/24 04:00 Blood Pressure 99/62 03/27/24 04:00 O2 Sat by Pulse Oximetry 99 03/27/24 04:00 Intake & Output: Intake & Output 03/24/24 03/25/24 03/26/24 03/27/24 11:59 11:59 11:59 11:59 Intake Total 2717 Balance 2717 Weight 72.7 kg 72.7 kg - Lab Result Diagrams: 03/27/24 04:12 03/27/24 09:40 Lab Results-Last 24 Hrs: Lab Results-Last 24 Hours 03/26/24 03/26/24 03/26/24 Range/Units 09:50 09:50 09:50 WBC 13.6 H (3.98-10.04) x10^3/uL RBC 4.36 (3.93-5.22) x10^6/uL Hgb 13.2 (11.2-15.7) g/dL Hct 40.1 (34.1-44.9) % MCV 92.0 (79.4-94.8) fL MCH 30.3 (25.6-32.2) pg MCHC 32.9 (32.2-35.5) g/dL RDW 13.2 (11.7-14.4) % Plt Count 323 (182-369) x10^3/uL MPV 10.7 (9.4-12.3) fL Gran % 82.6 H (34.0-71.1) % Immature Gran % (Auto) 0.5 H (0.001-0.429) % Nucleat RBC Rel Count 0.0 (0.00-0.2) % Eos # (Auto) 0.04 (0.04-0.36) x10^3/uL Immature Gran # (Auto) 0.07 H (0.001-0.031) x10^3u/L Absolute Lymphs (auto) 1.19 (1.18-3.74) x10^3/uL Absolute Monos (auto) 1.03 H (0.24-0.86) x10^3/uL Absolute Nucleated RBC 0.00 (0.00-0.012) x10^3u/L Lymphocytes % 8.8 L (19.3-51.7) % Monocytes % 7.6 (4.7-12.5) % Eosinophils % 0.3 L (0.7-5.8) % Basophils % 0.2 (0.1-1.2) % Absolute Granulocytes 11.21 H (1.56-6.13) x10^3/uL Basophils # 0.03 (0.01-0.08) x10^3/uL Sodium 135 (135-145) mmol/L Potassium 3.6 (3.5-5.1) mmol/L Chloride 101 (98-107) mmol/L Carbon Dioxide 25 (22-30) mmol/L Anion Gap 12.6 (5-15) MEQ/L BUN 8 (7-17) mg/dL Creatinine 0.70 (0.52-1.04) mg/dL Estimated GFR 111.4 ML/MIN Glucose 89 (74-106) mg/dL POC Glucometer (74 to 106) mg/dL Hemoglobin A1c (4.5-6.0) % Calcium 9.3 (8.4-10.2) mg/dL Total Bilirubin 0.70 (0.2-1.3) mg/dL AST 26 (14-36) U/L ALT 14 (0-35) U/L Alkaline Phosphatase 72 (38-126) U/L Serum Total Protein 7.5 (6.3-8.2) g/dL Albumin 4.2 (3.5-5.0) g/dL Lipase 90 (23-300) U/L Serum HCG, Qual NEGATIVE (NEGATIVE) Urine Color (Yellow) Urine Appearance (Clear) Urine pH (4.6-8.0) Ur Specific [place] (1.005-1.030) Urine Protein (Negative) Urine Glucose (UA) (Negative) mg/dL Urine Ketones (Negative) Urine Blood (Negative) Urine Nitrite (Negative) Urine Bilirubin (Negative) Urine Urobilinogen (0.2) mg/dL Ur Leukocyte Esterase (Negative) U Hyaline Cast (Auto) (0-2) /LPF Urine Microscopic RBC (0-5) /HPF Urine Microscopic WBC (0-5) /HPF Ur Epithelial Cells (None Seen) /HPF Urine Bacteria (None Seen) /HPF Urine Culture Reflexed (NO) 03/26/24 03/26/24 03/26/24 Range/Units 09:50 14:00 20:57 WBC (3.98-10.04) x10^3/uL RBC (3.93-5.22) x10^6/uL Hgb (11.2-15.7) g/dL Hct (34.1-44.9) % MCV (79.4-94.8) fL MCH (25.6-32.2) pg MCHC (32.2-35.5) g/dL RDW (11.7-14.4) % Plt Count (182-369) x10^3/uL MPV (9.4-12.3) fL Gran % (34.0-71.1) % Immature Gran % (Auto) (0.001-0.429) % Nucleat RBC Rel Count (0.00-0.2) % Eos # (Auto) (0.04-0.36) x10^3/uL Immature Gran # (Auto) (0.001-0.031) x10^3u/L Absolute Lymphs (auto) (1.18-3.74) x10^3/uL Absolute Monos (auto) (0.24-0.86) x10^3/uL Absolute Nucleated RBC (0.00-0.012) x10^3u/L Lymphocytes % (19.3-51.7) % Monocytes % (4.7-12.5) % Eosinophils % (0.7-5.8) % Basophils % (0.1-1.2) % Absolute Granulocytes (1.56-6.13) x10^3/uL Basophils # (0.01-0.08) x10^3/uL Sodium (135-145) mmol/L Potassium (3.5-5.1) mmol/L Chloride (98-107) mmol/L Carbon Dioxide (22-30) mmol/L Anion Gap (5-15) MEQ/L BUN (7-17) mg/dL Creatinine (0.52-1.04) mg/dL Estimated GFR ML/MIN Glucose (74-106) mg/dL POC Glucometer 53 L (74 to 106) mg/dL Hemoglobin A1c 4.84 (4.5-6.0) % Calcium (8.4-10.2) mg/dL Total Bilirubin (0.2-1.3) mg/dL AST (14-36) U/L ALT (0-35) U/L Alkaline Phosphatase (38-126) U/L Serum Total Protein (6.3-8.2) g/dL Albumin (3.5-5.0) g/dL Lipase (23-300) U/L Serum HCG, Qual (NEGATIVE) Urine Color Yellow (Yellow) Urine Appearance Clear (Clear) Urine pH 6.0 (4.6-8.0) Ur Specific [place] 1.015 (1.005-1.030) Urine Protein Negative (Negative) Urine Glucose (UA) Negative (Negative) mg/dL Urine Ketones 15 A (Negative) Urine Blood Negative (Negative) Urine Nitrite Negative (Negative) Urine Bilirubin Negative (Negative) Urine Urobilinogen 0.2 (0.2) mg/dL Ur Leukocyte Esterase Negative (Negative) U Hyaline Cast (Auto) NONE SEEN (0-2) /LPF Urine Microscopic RBC 0-2 (0-5) /HPF Urine Microscopic WBC 0-2 (0-5) /HPF Ur Epithelial Cells None Seen (None Seen) /HPF Urine Bacteria None Seen (None Seen) /HPF Urine Culture Reflexed NO (NO) 03/26/24 03/27/24 03/27/24 Range/Units 23:32 04:12 04:12 WBC 11.1 H (3.98-10.04) x10^3/uL RBC 3.28 L (3.93-5.22) x10^6/uL Hgb 10.3 L D (11.2-15.7) g/dL Hct 30.3 L (34.1-44.9) % MCV 92.4 (79.4-94.8) fL MCH 31.4 (25.6-32.2) pg MCHC 34.0 (32.2-35.5) g/dL RDW 13.5 (11.7-14.4) % Plt Count 232 (182-369) x10^3/uL MPV 10.7 (9.4-12.3) fL Gran % 78.3 H (34.0-71.1) % Immature Gran % (Auto) 0.4 (0.001-0.429) % Nucleat RBC Rel Count 0.0 (0.00-0.2) % Eos # (Auto) 0.11 (0.04-0.36) x10^3/uL Immature Gran # (Auto) 0.05 H (0.001-0.031) x10^3u/L Absolute Lymphs (auto) 1.33 (1.18-3.74) x10^3/uL Absolute Monos (auto) 0.89 H (0.24-0.86) x10^3/uL Absolute Nucleated RBC 0.00 (0.00-0.012) x10^3u/L Lymphocytes % 11.9 L (19.3-51.7) % Monocytes % 8.0 (4.7-12.5) % Eosinophils % 1.0 (0.7-5.8) % Basophils % 0.4 (0.1-1.2) % Absolute Granulocytes 8.72 H (1.56-6.13) x10^3/uL Basophils # 0.04 (0.01-0.08) x10^3/uL Sodium 134 L (135-145) mmol/L Potassium 3.4 L (3.5-5.1) mmol/L Chloride 105 (98-107) mmol/L Carbon Dioxide 23 (22-30) mmol/L Anion Gap 9.2 (5-15) MEQ/L BUN 9 (7-17) mg/dL Creatinine 0.69 (0.52-1.04) mg/dL Estimated GFR 111.8 ML/MIN Glucose 90 (74-106) mg/dL POC Glucometer 88 (74 to 106) mg/dL Hemoglobin A1c (4.5-6.0) % Calcium 7.9 L D (8.4-10.2) mg/dL Total Bilirubin 0.50 (0.2-1.3) mg/dL AST 14 (14-36) U/L ALT 9 (0-35) U/L Alkaline Phosphatase 49 (38-126) U/L Serum Total Protein 5.5 L (6.3-8.2) g/dL Albumin 2.9 L (3.5-5.0) g/dL Lipase (23-300) U/L Serum HCG, Qual (NEGATIVE) Urine Color (Yellow) Urine Appearance (Clear) Urine pH (4.6-8.0) Ur Specific [place] (1.005-1.030) Urine Protein (Negative) Urine Glucose (UA) (Negative) mg/dL Urine Ketones (Negative) Urine Blood (Negative) Urine Nitrite (Negative) Urine Bilirubin (Negative) Urine Urobilinogen (0.2) mg/dL Ur Leukocyte Esterase (Negative) U Hyaline Cast (Auto) (0-2) /LPF Urine Microscopic RBC (0-5) /HPF Urine Microscopic WBC (0-5) /HPF Ur Epithelial Cells (None Seen) /HPF Urine Bacteria (None Seen) /HPF Urine Culture Reflexed (NO) Micro Results-Entire Visit: Accuchecks Date 03/26/24 Time 23:30 Discharge Exam General Appearance: no apparent distress Neurologic Exam: alert, oriented x 3, cooperative Eye Exam: PERRL Ears, Nose, Throat Exam: normal ENT inspection Neck Exam: normal inspection Respiratory Exam: normal breath sounds, lungs clear Cardiovascular Exam: regular rate/rhythm, normal heart sounds Gastrointestinal/Abdomen Exam: soft, normal bowel sounds, other (3 surgical punctures CDI with gauze/tegaderm) Pelvic Exam: deferred Rectal Exam: deferred Back Exam: normal inspection Extremity Exam: normal inspection Final Diagnosis/Problem List - Final Discharge Diagnosis/Problem (1) Acute appendicitis Current Visit: Yes Status: Resolved Code(s): K35.80 - UNSPECIFIED ACUTE APPENDICITIS (2) Leukocytosis Current Visit: Yes Status: Resolved Code(s): D72.829 - ELEVATED WHITE BLOOD CELL COUNT, UNSPECIFIED (3) HTN (hypertension) Current Visit: Yes Status: Chronic Code(s): I10 - ESSENTIAL (PRIMARY) HYPERTENSION (4) Type 2 diabetes mellitus Current Visit: Yes Status: Chronic (5) Anxiety and depression Current Visit: Yes Status: Chronic Code(s): F41.9 - ANXIETY DISORDER, UN SPECIFIED; F32.A - DEPRESSION, UNSPECIFIED - Discharge Disposition: Home, Self-Care Condition: Stable Prescriptions: New Hydrocodone/Acetaminophen [Hydrocodone-Acetamin 5-325 mg] 1 tab PO Q4HPRN PRN #16 tablet MDD 6 PRN Reason: Pain Amox Tr/Potass Clav. 875 mg [Augmentin 875-125 Tablet] 875 mg PO BID #10 tablet Continue hydroCHLOROthiazide [Hydrochlorothiazide] 12.5 mg PO DAILY Metformin HCl 500 mg [Glucophage 500 MG] 500 mg PO BID Bupropion HCl Xl 150 mg [Wellbutrin XL 150 MG] 150 mg PO DAILY Amitriptyline HCl 25 mg [Amitriptyline 25 mg Tablet] 75 mg PO HS Semaglutide [Ozempic] 2 mg SQ WEEKLY Instructions: Amoxicillin and Clavulanate, Hydrocodone and Acetaminophen, Appendectomy, Laparoscopic Surgery (DC) Additional Instructions: No lifting anything heavier than a milk jug for 14 days. No baths, shower only. Follow up with: MACEY SHELLEY [COURTESY STAFF] - 04/01/24 9:00 am (at [facility]) ZEN ORTEGA NP [Primary Care Provider] - 04/03/24 9:30 am
[2024-03-27] MEDS: NORCO 5/325 MG PO PRN (08:09)
[2024-03-27] MEDS: Klor Con PO SCH (08:09)
[2024-03-27] MEDS: Lactated Ringers 1,000 ML IV SCH (08:43)
--- NOTE | 2024-03-27 09:19 | CONS ---
HISTORY: The patient is a 43 year old, has had some right lower quadrant pain since yesterday. She had some nausea and vomiting then. She denies any bloody stools. She came in. She had a distended appendix with periappendiceal inflammatory changes. CT reviewed. Concern she had acute appendicitis. She had leukocytosis. The ER doctor said she had a white count of 13. PAST MEDICAL HISTORY: She has some hypertension. She does have some anxiety. Otherwise, she does wear contact lenses. PAST SURGICAL HISTORY: She has had tubal in the past, her tubes removed in the past. 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 She had LEEP procedure in the past. HOME MEDICATIONS: She has been on some hydrochlorothiazide. She does take some Ozempic for some diet control and for some diabetes. ALLERGIES: BEE VENOM. Denies any drug allergies. FAMILY HISTORY: Heart disease. SOCIAL HISTORY: Denies current smoking. No alcohol abuse. REVIEW OF SYSTEMS: Twelve systems reviewed and no chest pain or palpitations. Otherwise, pertinent for the right lower quadrant aches and pains. PHYSICAL EXAMINATION: GENERAL: Slightly uncomfortable; otherwise, no acute distress. HEENT: Sclerae nonicteric. NECK: No JVD. CHEST: Equal excursion, nonlabored breathing. CARDIOVASCULAR: Regular rate and rhythm. ABDOMEN: Soft. Tenderness in the right lower quadrant consistent with history and physical exam findings consistent with acute appendicitis. EXTREMITIES: No edema. NEUROLOGIC: Alert and oriented, moving extremities symmetrically. PSYCHIATRIC: Appropriate mood and affect. SKIN: Dry. IMPRESSION: Acute right lower quadrant pain. History and physical exam, CT findings suspicious for acute appendicitis. Feel the patient would benefit from laparoscopic appendectomy, possible open. General risks of bleeding, infection, risk of trocar injury or hernia, risk of bowel, bladder, or blood vessel injury, and risk of subsequent intra-abdominal abscess or fistula possibly requiring percutaneous or open drainage, even at a later date, general risks of anesthesia, DVT, PE, pneumonia. Perioperative risks of aches, pain, bloating, ileus or obstruction, possibility of needing an open procedure, possibility of finding a normal appendix likely will remove incidentally and for other etiology that might need taken care of surgically. She understands and agrees to planned procedure. We will proceed with lap appy and possible open when OR time available.
[2024-03-27 12:34] VITALS: BP 112/68; PULSE 84; TEMP 98.4; O2SAT 95
--- NOTE | 2024-03-28 14:18 | OP ---
SURGERY DATE/TIME: 03/26/2024 170 [id number] PREOPERATIVE DIAGNOSIS: Acute right lower quadrant pain, suspicious for acute appendicitis. POSTOPERATIVE DIAGNOSIS: Acute appendicitis. PROCEDURE: Laparoscopic appendectomy. SURGEON: Bradley Degroot MD ANESTHESIA: General. ESTIMATED BLOOD LOSS: Minimal. INDICATIONS: As noted above. Risks and benefits explained in detail, but not limited to. Consent obtained. DESCRIPTION OF PROCEDURE AND FINDINGS: The patient was taken to the operating room. General anesthesia was induced. She was prepped and draped in the usual sterile fashion. After official time-out, no disagreement in planned procedure, transverse incision made in the supraumbilical area. Fascia grasped and pulled up. Veress needle inserted. Tested with saline. Pneumoperitoneum accomplished insufflating to an open pressure of 0-15. A 5 mm bladeless port and camera inserted followed by lower midline 5 mm port and right mid abdomen 12 mm port. There was no evidence of any intra-abdominal injury secondary to trocar insertion. The appendix was quite inflamed. It was nonperforated but very indurated and extensive reaction around it. It took quite some time to get a LigaSure device to carefully mobilize it upward, eventually to the base of the cecum is where it was stapled with the EndoGIA stapler. It had been quite vascular and then raw. There was no vessel to ligate or seal at this time. The appendix was then placed in a bag and pulled out through the 12 port site, enlarging the fascia slightly. This fascial defect was closed with puncture closure device with #1 Vicryl and the port was temporarily replaced with a suture tag temporarily and the irrigation of right lower quadrant and pelvis, irrigating it clear. The patient had been raw there. It was felt she was not a candidate for immediate Lovenox use, felt early ambulation and SCDs for DVT prophylaxis. Small piece of Surgicel was placed in the raw surface area. Again, there was no specific vessel to ligate or seal at this time. The patient had been given Toradol. At this point, pneumoperitoneum decompressed. Ports removed. Again, the 12 fascial defect secured with #1 Vicryl and wound was irrigated out. Skin incisions closed with 4-0 Vicryl. Marcaine 0.25% local had been injected along each skin incision and fascial defect at the end of the procedure. There were no immediate complications. Findings discussed with family out in the waiting area.
== END 2024-03-27 13:29 | disposition home or self-care (01) ==
LOC: ED 09:41 → MED SURG 11:54
PROVIDERS: ADMIT Internal Medicine; ATTEND Internal Medicine
DX: K35.80 Unspecified acute appendicitis (principal); D72.829 Elevated white blood cell count, unspecified; I10 Essential (primary) hypertension; E11.9 Type 2 diabetes mellitus without complications; F41.9 Anxiety disorder, unspecified; Z79.899 Other long term (current) drug therapy
CPT/HCPCS: 36000; 36415; 44970; 80053; 81001; 82947; 83036; 83690; 84132; 84703; 85025; 96360; 96365; 99285; G0378; Q3014; 99140; J0330; J0694; J1885; J2250; J2405; J2704; J3010; A9270-GY

== ENCOUNTER 2024-09-10 06:23 | Day surgery (SDC) | payer BC ==
[2024-09-10 06:43] LABS: HCG URINE TEST NEGATIVE (NEGATIVE)
[2024-09-10 06:49] VITALS: RESP 16
[2024-09-10] MEDS: D50W 50 ml Abboject IV ONE (07:32)
[2024-09-10] MEDS ORDERED: DIPRIVAN 200 MG/20 ML IV ONE ×2 (07:38→08:10)
[2024-09-10] MEDS ORDERED: Versed 2 MG/2 ML Injection ONE (07:38)
[2024-09-10 08:39] VITALS: O2SAT 99
[2024-09-10 08:46] VITALS: BP 123/84; PULSE 80; TEMP 97.3
--- NOTE | 2024-09-12 11:20 | OP ---
SURGERY DATE/TIME: 09/10/2024 [id number] PREOPERATIVE DIAGNOSIS: Anemia. POSTOPERATIVE DIAGNOSIS: Normal colon but inadequate prep. PROCEDURE: Colonoscopy. SURGEON: Delroy Gibson MD. ANESTHESIA: Medications were given by the anesthesia department. INDICATIONS: Patient is a 43-year-old white female who presents now for anemia. She had seen the creative resource manager who felt that she needed to have a colonoscopic evaluation. The patient was appraised of the risks of the procedure including risk of perforation, phlebitis, untoward reaction to medication, bleeding, and missed lesions. The patient verbalized her understanding and desire to have procedure performed. DESCRIPTION OF PROCEDURE AND FINDINGS: The patient was given medication by the anesthesia department. She had continuous pulse oximetry, ECG monitoring, and intermittent blood pressure monitoring during the examination. She was placed in the left lateral decubitus position. Digital rectal examination was performed and revealed normal anal sphincter tone and no masses. The flexible Olympus dedo colonoscope was used to intubate the rectum. A view of the colon was developed sequentially to the ascending colon. We were unable to clearly see the cecum due to the large amounts of stool that were still residual in the colon. Upon insertion and withdrawal, no mucosal lesions were encountered, but again, large amounts of stool were noted throughout the colon that had large amounts of particulate matter and unable to be suctioned through the scope. The scope was removed. The patient tolerated the procedure well and was sent back to outpatient recovery in good condition.
== END 2024-09-10 08:56 | disposition home or self-care (01) ==
LOC: SDC 06:23
PROVIDERS: ATTEND Family Medicine
DX: D64.9 Anemia, unspecified (principal); R73.03 Prediabetes
CPT/HCPCS: 81025; 82947; J2250; J2704